=== PATIENT | female | born 1995 | race African-American/Black ===

== ENCOUNTER 2019-07-29 19:22 | Emergency (ER) | payer OTHER ==
[~2019-07-29] VITALS: Ht 160 cm; Wt 81.6 kg
[2019-07-29 20:05] VITALS: BP 107/70
--- NOTE | 2019-07-29 20:05 | NUR ---
ED Nurse Note: Pt c/o 04/03 stabbing pain upon inspiration, pt has hx of childhood asthma, smoker, 91%on RA
[2019-07-29] MEDS: Albuterol/Ipratropium 3ml neb HHN SCH ×4 (21:19→21:29)
--- NOTE | 2019-07-29 21:29 | Emergency Room Report ---
History of Present Illness General Chief Complaint: Upper Respiratory Illness Source: Patient Present Illness HPI 24-year-old female with history of asthma and heavy tobacco smoke here complaining of over 6 weeks of productive cough with phlegm production and intermittent fever and chills. Patient went to a different hospital 2 days ago and was given Z-Malcolm with Robitussin with minimal improvement. c/o sob when coughing. Patient complains of shortness of breath and oxygenation is 91%. Patient is in mild distress however denies chest pain, palpitation, headache and dizziness. Reports that she smokes on a daily basis. Denies other drug use , alcohol intake. Denies nausea vomiting, abdominal pain, and other URI symptoms. Reports that her albuterol inhaler has not been helping her. Allergies: Coded Allergies: No Known Allergies (Unverified , 07/29/19) Patient History Past Medical History: see triage record Past Surgical History: unable to obtain Pertinent Family History: none Social History: Reports: smoking Last Menstrual Period: 07/09/19 Now: No : 0 Para: 0 Immunizations: UTD Reviewed Nursing Documentation: PMH: Agreed; PSxH: Agreed Nursing Documentation-PMH Past Medical History: No History, Except For Hx Asthma: Yes Review of Systems All Other Systems: negative except mentioned in HPI Physical Exam Vital Signs Date Time Temp Pulse Resp B/P (MAP) Pulse Ox O2 Delivery O2 Flow Rate FiO2 07/29/19 19:54 98.4 91 19 107/70 (82) 91 Room Air 07/29/19 21:19 21 Sp02 EP Interpretation: reviewed, abnormal - 91% oxygenation General Appearance: no apparent distress, alert, GCS 15, non-toxic Head: normocephalic, atraumatic Eyes: bilateral eye normal inspection, bilateral eye PERRL ENT: hearing grossly normal, normal pharynx, no angioedema, normal voice Neck: full range of motion, supple, thyroid normal, no bony tend, no carotid bruits, supple/symm/no masses Respiratory: chest non-tender, crackles, speaking full sentences, wheezing Cardiovascular #1: regular rate, rhythm, no edema, no murmur, normal capillary refill Gastrointestinal: normal bowel sounds, non tender, soft Rectal: deferred Genitourinary: no CVA tenderness Musculoskeletal: back normal, digits/nails normal, gait/station normal, non- tender, no calf tenderness Neurologic: alert, oriented x3, responsive, motor strength/tone normal, sensory intact, speech normal Psychiatric: judgement/insight normal, memory normal, mood/affect normal, no suicidal/homicidal ideation Skin: no rash Lymphatic: no adenopathy Medical Decision Making PA Attestation All my diagnosis and treatment plans were reviewed ad discussed with my supervising physician Dr. Modi Diagnostic Impression: Primary Impression: Atypical pneumonia ER Course 24-year-old female with history of asthma and heavy tobacco smoke here complaining of over 6 weeks of productive cough with phlegm production and intermittent fever and chills. Patient went to a different hospital 2 days ago and was given Z-Malcolm with Robitussin with minimal improvement. Patient complains of shortness of breath and oxygenation is 91%. Patient is in mild distress however denies chest pain, palpitation, headache and dizziness. Reports that she smokes on a daily basis. Denies other drug use, alcohol intake. Denies nausea vomiting, abdominal pain, and other URI symptoms. Reports that her albuterol inhaler has not been helping her.c/o sob when coughing Ddx considered but are not limited to: bronchitis, PNA, URI viral, bacterial bronchitis Vital signs: are WNL, pt. is afebrile H&PE are most consistent with: Atypical pneumonia ORDERS: Chest x-ray, Phenergan, Rocephin, azithromycin, albuterol inhaler, Medrol Dosepak ED INTERVENTIONS: DuoNeb DISCHARGE: At this time pt. is stable for d/c to home. Will provide printed patient care instructions, and any necessary prescriptions. Care plan and follow up instructions have been discussed with the patient prior to discharge. Patient to follow-up with her primary care provider, if worsening symptoms return to the emergency room. Chest X-Ray Diagnostic Results Chest X-Ray Diagnostic Results : Chest X-Ray Ordered: Yes # of Views/Limited/Complete: 1 View Indication: Shortness of Breath EP Interpretation: Yes GRACIE Xray: Interpretation reviewed, by supervising MD, and agrees with findings. Interpretation: other - inflintrates Impression: Other - atypical pna Electronically Signed by: Enrique Akers PA-C Last Vital Signs Date Time Temp Pulse Resp B/P (MAP) Pulse Ox O2 Delivery O2 Flow Rate FiO2 07/29/19 21:19 106 20 98 Nasal Cannula 21 105 20 95 07/29/19 19:54 98.4 107/70 (82) Disposition: HOME, SELF-CARE Condition: Stable Patient Instructions: Community-Acquired Pneumonia, Adult, Upper Respiratory Infection, Adult Additional Instructions: Take medication as directed, follow-up with primary care provider, if worsening symptoms return to the emergency room Enrique Magaña Jul 29, 2019 21:29
[2019-07-29] MEDS ORDERED: ZITHROMAX250 MG ORAL (21:30)
[2019-07-29] MEDS ORDERED: VENTOLIN HFA18 GM INH (21:30)
[2019-07-29] MEDS ORDERED: PROMETHAZI6.25 MG/1 ORAL (21:30)
[2019-07-29] MEDS ORDERED: MEDROL DOSEPAK4 MG ORAL (21:30)
[2019-07-29] MEDS ORDERED: Lidocaine 1% MPF 10mg/ml 5ml INJ ONE (21:45)
[2019-07-29 21:50] VITALS: BP 107/70
--- NOTE | 2019-07-29 21:50 | NUR ---
ER DISCHARGE NOTE: Patient is cleared to be discharged per ERMD, pt is aox4, on room air, with stable vital signs. pt was given dc and prescription instructions, pt was able to verbalize understanding, pt id band removed. pt is able to ambulate with steady gait. pt took all belongings.
--- NOTE | 2019-07-30 12:17 | Diagnostic Imaging Report ---
Indication: Cough Technique: One view of the chest Comparison: none Findings: Lungs and pleural spaces are clear. The heart size is normal. Impression: No acute process
== END 2019-07-29 21:50 | disposition home or self-care (01) ==
LOC: EMR 21:40
DX: J18.9 Pneumonia, unspecified organism (principal); F17.210 Nicotine dependence, cigarettes, uncomplicated
CPT/HCPCS: 71045; 94640; 96372; 96374; J0696; Z7502; 99284; J7620